=== PATIENT | male | born 1985 | race African-American/Black ===

== ENCOUNTER 2017-07-23 22:59 | Emergency (ER) | payer OTHER ==
[~2017-07-23] VITALS: Ht 177.8 cm; Wt 67.4 kg
[~2017-07-23 22:59] MED LIST: PHEN100C PO; PHEN300C2 PO
[2017-07-23 23:10] VITALS: Ht 177.8 cm; Wt 67.4 kg
[2017-07-24] MEDS ORDERED: KETOROLAC 30 MG INJ IM STA (00:33)
[2017-07-24] MEDS ORDERED: LIDOCAINE 1% (MDV) 20 ML INJ SC ONE (01:00)
[2017-07-24] MEDS ORDERED: IBUP800T25 PO (01:39)
--- NOTE | 2017-07-24 01:46 | ERD ---
ER Documentation Chief Complaint Chief Complaint back neck pain and swelling X1 week HPI 32-year-old male present ED with painful cyst on his neck. Patient stated that he had a cyst for a few month, but had become pain for the last week. Denies fever or chills. Denies drainage from the cyst. Denies trauma. ROS All systems reviewed and are negative except as per history of present illness. Medications Home Meds Active Scripts Ibuprofen* (Motrin*) 800 Mg Tab, 800 MG PO Q6H Y for PAIN AND OR ELEVATED TEMP, #30 TAB Prov:ARAVIND CONNOLLY [employer]URING [employer] 07/24/17 Phenytoin* Sodium Extended (Dilantin*) 100 Mg Capsule, 100 MG PO TID, #30 CAP Prov:ANDREINA MURGUIA DO 07/04/16 Phenytoin* Sodium Extended (Dilantin*) 100 Mg Capsule, 100 MG PO TID, #90 CAP Prov:TALISHA SIEGELC 05/27/16 Phenytoin* Sodium Extended (Dilantin*) 100 Mg Capsule, 100 MG PO TID for 30 Days , CAP Prov:SARANYA MAXWELL 02/12/16 Phenytoin* Sodium Extended (Dilantin*) 100 Mg Capsule, 100 MG PO TID for 30 Days , CAP Prov:DAVID HENDERSON MD 12/15/15 Phenytoin* Sodium Extended (Dilantin*) 100 Mg Capsule, 100 MG PO HS, #90 CAP Prov:DILLON ARANDA 10/22/15 Phenytoin* Sodium Extended (Dilantin*) 300 Mg Capsule, 300 MG PO HS, #90 CAP Prov:DILLON ARANDA 10/22/15 Allergies Allergies: Coded Allergies: No Known Allergy (Verified , 07/04/16) PMhx/Soc Medical and Surgical Hx: pt denies Surgical Hx History of Surgery: No Anesthesia Reaction: No Hx Neurological Disorder: Yes (SEIZURES) Hx Respiratory Disorders: No Hx Cardiac Disorders: No Hx Psychiatric Problems: No Hx Miscellaneous Medical Probl: No Hx Alcohol Use: No Hx Substance Use: No Hx Tobacco Use: No Smoking Status: Never smoker Physical Exam Vitals Vital Signs Date Time Temp Pulse Resp B/P Pulse Ox O2 Delivery O2 Flow Rate FiO2 07/23/17 23:10 97.9 75 18 114/76 95 Physical Exam General: Well-developed, well-nourished, conscious and coherent, in no distress Skin: Warm and dry without rash, good texture and turgor Head: Normocephalic without evidence of trauma. A sebaceous cyst approximately 1.5 cm in size is noted at the right lower occipital region, tender to palpation. Eyes: Sclera and conjunctivae normal; pupils equal, round, and reactive to light; extraocular movements are intact Neck: Supple without meningismus or adenopathy. Carotids are equal. Trachea midline. No bruits or JVD Chest: Normal AP diameter. Good expansion without retractions. Nontender. Lungs are clear to auscultate bilaterally with good tidal volume Heart: Regular rate and rhythm. No murmur, rub, or gallops heard Extremities: Full range of motion. Good strength bilaterally. No clubbing, cyanosis, or edema. Peripheral pulses are intact. Sensation intact Neuro: Alert and oriented 4, GCS 15. Cranial nerves grossly intact. Motor and sensory exams nonfocal. Moves all extremities. Speech clear. Gait normal Results 24 hrs Current Medications Medications (Trade) Dose Ordered Sig/Oswaldo Route PRN Reason Start Time Stop Time Status Last Admin Dose Admin Lidocaine (Xylocaine 1% (Mdv) 20 ml) 20 ml ONCE ONCE SC 07/24/17 01:00 07/24/17 01:01 DC Ketorolac Tromethamine (Toradol) 30 mg ONCE STAT IM 07/24/17 00:33 07/24/17 00:35 DC 07/24/17 01:11 Procedures/[facility] Procedure note: Incision and Drainage Verbal consent obtained for incision and drainage of patient's patient's cyst. The area was prepped with Betadine. Lidocaine 1% was infiltrated for local anesthesia. After appropriate anesthesia, incision was made using #11 blade. Sebum was expressed from the cyst, no purulent drainage. I was able to remove the sebaceous cyst sac completely. Tolerated procedure well. Well-appearing 32-year-old male present ED with painful sebaceous cyst on his right neck. The cyst is not infected. He does not have any abscess or cellulitis. Patient appears well, stable for discharge and outpatient management. Medical decision making shared with patient and family. Education provided to patient and family. Patient and family expressed understanding of the plan. Medications on discharge: Ibuprofen. Follow-up: Primary care provider in 2-3 days or return to ED if worse. Disclaimer: Inadvertent spelling and grammatical errors are likely due to EHR/ dictation software use and do not reflect on the overall quality of patient care. Also, please note that the electronic time recorded on this note does not necessarily reflect the actual time of the patient encounter. Departure Diagnosis: Primary Impression: Sebaceous cyst Condition: Stable Patient Instructions: Sebaceous Cyst, Infected (I And D) Referrals: [facility] YOU HAVE RECEIVED A MEDICAL SCREENING EXAM AND THE RESULTS INDICATE THAT YOU DO NOT HAVE A CONDITION THAT REQUIRES URGENT TREATMENT IN THE EMERGENCY DEPARTMENT. FURTHER EVALUATION AND TREATMENT OF YOUR CONDITION CAN WAIT UNTIL YOU ARE SEEN IN YOUR DOCTORS OFFICE WITHIN THE NEXT 1-2 DAYS. IT IS YOUR RESPONSIBILITY TO MAKE AN APPOINTMENT FOR FOLOW-UP CARE. IF YOU HAVE A PRIMARY DOCTOR --you should call your primary doctor and schedule an appointment IF YOU DO NOT HAVE A PRIMARY DOCTOR YOU CAN CALL OUR PHYSICIAN REFERRAL HOTLINE AT IF YOU CAN NOT AFFORD TO SEE A PHYSICIAN YOU CAN CHOSE FROM THE FOLLOWING [facility] [address] [facility]. [facility] [address] [facility]. [facility] [address] [facility]. [facility] [address] [facility]. [facility] [address] [facility]. [facility]. [address] Additional Instructions: Return to this facility in 2 DAYS for a follow-up exam.Return sooner if your condition worsens. Call your primary care doctor TOMORROW for an appointment during the next 1 WEEK.Tell the typing secretary that you were referred from this facility.See the doctor sooner or return here if your condition worsens before your appointment time. ARAVIND CONNOLLY NP Jul 24, 2017 01:46
== END 2017-07-24 02:05 | disposition home or self-care (01) ==
LOC: FTE 22:59
DX: L72.3 Sebaceous cyst (principal)
CPT/HCPCS: 10060; 96372; J1885; Z7502; Z7610

== ENCOUNTER 2017-10-05 10:37 | Emergency (ER) | END 2017-10-05 13:06 | disposition home or self-care (01) ==

== ENCOUNTER 2017-12-28 13:01 | Emergency (ER) | END 2017-12-28 13:20 | disposition home or self-care (01) ==

== ENCOUNTER 2018-04-30 21:48 | Emergency (ER) | END 2018-05-01 00:24 | disposition home or self-care (01) ==

== ENCOUNTER 2018-05-17 21:56 | Emergency (ER) | END 2018-05-17 23:13 | disposition home or self-care (01) ==

== ENCOUNTER 2018-05-28 21:52 | Emergency (ER) | END 2018-05-28 22:59 | disposition home or self-care (01) ==

== ENCOUNTER 2018-08-02 14:07 | Emergency (ER) | END 2018-08-02 16:19 | disposition home or self-care (01) ==

== ENCOUNTER 2018-08-25 22:27 | Emergency (ER) | END 2018-08-25 22:55 | disposition home or self-care (01) ==